=== PATIENT | female | born 1930 | race Caucasian/White ===

== ENCOUNTER 2017-06-06 16:58 | Observation (INO) | payer MEDICARE ==
[~2017-06-06] VITALS: Ht 149.9 cm; Wt 68.0 kg
--- NOTE | ~2017-06-06 | HP ---
Unit #: [id number] #: [id number] Patient: YUE LOPEZ [id number] [address] [id number] I MR#: [id number] NAME: YUE LOPEZ. ROOM: 217 Age: 86 Sex: F Admission Date: 06/06/2017 : 1930 Attending Physician: Mel Lara M.D. Primary Care Physician: Jammie Givens M.D. HISTORY AND PHYSICAL CHIEF COMPLAINT Gastroenteritis with dehydration. HISTORY This pleasant 86-year-old female with hypertension, AODM, hypothyroidism, is admitted for gastroenteritis. Patient was well until four days ago when she developed nonbloody, nausea, vomiting and then diarrhea yesterday. Denies abdominal pain, fever, sweats or chills. Did not eat anything out of the ordinary, no exposures to ill persons. She presented to the emergency department tonight and was given IV fluids and Zofran, still has drive heaves. Her abdominal examination is benign. CT scan is unremarkable. Denies history of recurrent GI symptoms. PAST MEDICAL HISTORY 1. Hypertension. 2. AODM since 2006. 3. Hypothyroidism. 4. History of cervical spine pain requiring epidural steroid injections in the past. 5. Breast cancer, status post left mastectomy about 4 1/2 years ago. 6. Hypothyroidism, status post thyroidectomy. 7. Appendectomy. 8. Cataract extraction. 9. Cholecystectomy. 10. Hysterectomy. 11. Surgery for a detached retina. ALLERGIES Sulfa. HOME MEDICATIONS Allopurinol 300 mg daily; Lasix 20 mg b.i.d.; losartan 25 mg daily; Synthroid 0.125 mg daily; metformin 500 mg b.i.d.; aspirin 81 mg daily; tamoxifen 20 mg daily. FAMILY HISTORY Diabetes mellitus, hypertension, asthma. SOCIAL HISTORY The patient lives with her grandchildren. Lifelong nonsmoker, does not drink alcohol. Unit #: [id number] #: [id number] Patient: YUE LOPEZ REVIEW OF SYSTEMS Notable for hypertension, AODM, hypothyroidism, breast cancer, nausea, vomiting, and diarrhea. Above mentioned surgeries. Other systems were reviewed and otherwise negative. PHYSICAL EXAMINATION GENERAL: Pleasant, moderately obese, 86-year-old female currently in no acute distress. VITAL SIGNS: Temperature 98.1, pulse 108, respirations 16, blood pressure 163/60, O2 saturation is 97% on room air. HEENT: Eyes - PERRLA. Extraocular movements intact. Pharynx is benign. NECK: Supple without adenopathy or thyromegaly. CHEST: Clear. CARDIAC: Normal S1 and S2 without S3, S4 or murmur. ABDOMEN: Bowel sounds are present. No hepatosplenomegaly, tenderness, or masses. EXTREMITIES: Without edema. Pedal pulses are present. No ulcers on the feet. NEUROLOGIC: Patient is awake, alert, and oriented. Cranial nerves are intact, except that she is hard of hearing. She has equal strength throughout. DIAGNOSTIC STUDIES ADMISSION LABS: Hematocrit is 41.4, white blood count is 13.5, MCV is 96, normal platelet count. SMA 12 - glucose 123, BUN 24, AST 46, ALT 52. Urinalysis negative. IMAGING STUDIES: CT scan of the abdomen and pelvis show diverticulosis, mild hepatomegaly with hepatic steatosis, typical and atypical renal cyst, which are unchanged. ASSESSMENT 1. Gastroenteritis with dehydration. 2. AODM. 3. Essential hypertension. 4. Breast cancer, status post left mastectomy. 5. Hypothyroidism. PLANS 1. IV fluids and supportive treatment. 2. Hold Lasix until diet is advanced. 3. Stool cultures. 4. Sliding scale insulin for now. 5. SCDs for DVT prophylaxis. 1. Dictated by Mel Lara M.D. AML/ts TD: 06/07/2017 05:33 JOB #: [id number] Unit #: [id number] #: [id number] Patient: YUE LOPEZ HISTORY AND PHYSICAL Page 1 of 1 X Mel Lara MD HISTORY AND PHYSICAL
--- NOTE | ~2017-06-06 | US37 ---
[facility] A Service of [facility] & [facility] RADIOLOGY TEXT RESULTS PATIENT: YUE LOPEZ LOCATION: [facility] - : 32 UNIT #: [id number] AGE: [address]: Kwan Arriaza MD SEX: F ORDER DR: [id number] [facility] [address] [place], [place] [address] [id number] I MR#: [id number] Acc #: [id number] NAME: YUE LOPEZ. : 1930 SEX: F STUDY DATE/TIME: 06/07/2017 13:10 UNIT: [facility] ROOM: [facility] STUDY DESCRIPTION: US Carotid W/Doppler Bilateral Attending Physician: Kwan Arriaza M.D. Ordering Physician: Kwan Arriaza M.D. Primary Care Physician: Jammie Givens M.D. MEDICAL IMAGING REPORT This report is preliminary unless electronic signature is present EXAM Bilateral carotid duplex HISTORY Dizziness x 4 months. FINDINGS There is patent flow seen throughout the right common carotid, internal carotid, and external carotid arteries. There is some mild homogeneous echogenic plaque seen in the mid-portion of the right common carotid artery, extending to the carotid bifurcation, where it appears a bit more heterogeneous and irregular. This plaque extends into the internal carotid and external carotid arteries. The right common carotid peak velocity is 48 cm/sec. The right internal carotid artery, which appears somewhat tortuous, has the following peak systolic/end-diastolic velocities: proximal 65/9 cm/sec, mid 72.13 cm/sec, distal 50/15 cm/sec. The right external carotid artery has peak systolic of 94 cm/sec, vertebral artery 26 cm/sec. The right ICA:CCA ratio is 1.4. There is patent flow seen throughout the left common carotid, internal carotid and external carotid arteries. At the left carotid bifurcation, there is some irregular, heterogeneous and echogenic plaque. The left common carotid artery peak velocity is 59 cm/sec. The left internal carotid artery peak systolic/end-diastolic velocities are: proximal 59/11 cm/sec, mid 63/16 cm/sec, distal 65/16 cm/sec. The left external carotid peak velocity is 48 cm/sec and vertebral artery 45 cm/sec. The left ICA:CCA ratio is 1.1. IMPRESSION 1. The right carotid artery has mild atherosclerosis, which is not hemodynamically significant by duplex criteria (less than 50%). 2. The left carotid artery has mild atherosclerosis, which is not STS. [facility] A Service of [facility] & [facility] RADIOLOGY TEXT RESULTS PATIENT: YUE LOPEZ LOCATION: [place] [address] : 32 UNIT #: [id number] AGE: [address]: Kwan Arriaza MD SEX: F ORDER DR: hemodynamically significant by duplex criteria (less than 50%). 3. Vertebral flow antegrade bilaterally. Dictated by... Josue Jolly M.D. THIS IS AN ELECTRONICALLY VERIFIED REPORT Josue Jolly M.D. at 06/12/2017 7:12 AM THELMA/j carlos TD: 06/07/2017 23:17 JOB #: [id number] MEDICAL IMAGING REPORT Page 1 of 1 COPY
--- NOTE | ~2017-06-06 | CT71 ---
[facility] A Service of [facility] RADIOLOGY TEXT RESULTS PATIENT: YUE LOPEZ LOCATION: [facility] 217- : 32 UNIT #: [id number] AGE: [address]: Kwan Arriaza MD SEX: F ORDER DR: [id number] [facility] [address] [facility] [place], [place] [address] [id number] I MR#: [id number] Acc #: [id number] NAME: YUE LOPEZ. : 1930 SEX: F STUDY DATE/TIME: 06/07/2017 14:05 UNIT: [facility] ROOM: [facility] STUDY DESCRIPTION: CT Head Wo Contrast Attending Physician: Kwan Arriaza M.D. Ordering Physician: Kwan Arriaza M.D. Primary Care Physician: Jammie Givens M.D. MEDICAL IMAGING REPORT This report is preliminary unless electronic signature is present EXAM Noncontrast CT head 06/07/2017 HISTORY Dizziness for 2 days. Hypertension. History of breast cancer. COMPARISON Noncontrast CT head 08/08/2011. TECHNIQUE This CT exam was performed with one or more of the following radiation dose reduction techniques: automatic exposure control, adjustment of mA and/or kV according to patient size, and iterative reconstruction. FINDINGS Extensive hypodensities throughout the deep white matter of the brain are consistent with the appearance of chronic microvascular disease. [place] matter-white matter junction distinction appears preserved without evidence of acute or evolving infarct. No intracranial mass lesion, mass effect or midline shift is identified. There is mild generalized parenchymal atrophy with compensatory prominence of ventricles and extraaxial spaces. Abnormal hyperdensity throughout the left globe with what appears be a scleral band in place. This is unchanged from prior. No acute calvarial abnormality. Major paranasal sinuses and mastoid air cells are clear. IMPRESSION 1. No acute intracranial findings. 2. Extensive chronic microvascular disease changes. 3. Abnormal appearance of the left globe, similar to the 2010 [facility] A Service [facility] RADIOLOGY TEXT RESULTS PATIENT: YUE LOPEZ LOCATION: [facility] 217-01 : 32 UNIT #: [id number] AGE: [address]: Kwan Arriaza MD SEX: F ORDER DR: examination. Correlate with known history and physical exam findings. Dictated by... Katie Payna M.D. THIS IS AN ELECTRONICALLY VERIFIED REPORT Katie Payan M.D. at 06/08/2017 2:03 PM KELLEY/j carlos TD: 06/07/2017 20:34 JOB #: [id number] MEDICAL IMAGING REPORT Page 1 of 1 COPY
--- NOTE | ~2017-06-06 | DS ---
Unit #: [id number] #: [id number] Patient: YUE LOPEZ [id number] [address] [place], [place] [address] [id number] I MR#: [id number] NAME: YUE LOPEZ. ROOM: 217 Age: 86 Sex: F Admission Date: 06/06/2017 : 1930 Discharge Date: 06/08/2017 Attending Physician: Kwan Arriaza M.D. Primary Care Physician: Jammie Givens M.D. DISCHARGE SUMMARY REASON FOR ADMISSION Gastroenteritis, intractable nausea and vomiting. HISTORY OF PRESENT ILLNESS/HOSPITAL COURSE The patient is a very pleasant 86-year-old female with a prior history of hypertension, diabetes, hypothyroidism, was admitted secondary to gastroenteritis. Please see H and P for complete details. She underwent CT abdomen and pelvis in the emergency room which did not show any acute process. She was admitted, placed on Med/Surg floor initially and symptom management was initiated. Her diet was gradually transitioned from clear into regular. She was placed on PPI therapy as well as IV Zofran. She was placed on appropriate IV fluids. She subsequently stated that she had been having off and on dizziness as well as difficulty with ambulation secondary to recurrent room spinning and/or lightheadedness issues. Therefore, this prompted a CT head non-contrast which did not show any acute process. Similar findings were obtained as her 2011 CT report. She also underwent an ultrasound of her bilateral carotids which revealed less than 50% atherosclerosis. Routine laboratory studies showed a hemoglobin A1c of 6.5%, B12 was slightly decreased at 348 and she was given vitamin B12 prior to discharge. Heart monitor did not show any acute arrhythmias while she was here. EKG showed normal sinus with occasional premature atrial contractions. At this point in time, the patient is clinically stable for discharge and will have VNA services follow her at time of discharge. I will be decreasing her metformin to 500 mg on a once a day basis and her Lasix I will discontinue altogether as I don't see a reason for Lasix at this particular time. FINAL DISCHARGE DIAGNOSES 1. Viral gastroenteritis, now resolving. 2. 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 3. Hypertension. 4. Type 2 diabetes. 5. Hypothyroidism. 6. Prior history of breast carcinoma. Unit #: [id number] #: [id number] Patient: YUE LOPEZ 7. Hypothyroidism. FINAL DISCHARGE MEDICATIONS 1. Tylenol 650 mg p.o. q.4 p.r.n. 2. Glucophage 500 mg p.o. daily. 3. Tamoxifen 20 mg p.o. daily. 4. Cozaar 25 mg p.o. daily. 5. Allopurinol 300 mg p.o. daily. 6. Aspirin 81 mg p.o. daily. 7. Synthroid 125 mcg p.o. daily. DISCHARGE CONDITION Stable. DISCHARGE DISPOSITION Home. Dictated by... [place] Raman/nohemi TD: 06/08/2017 13:11 JOB #: [id number] DISCHARGE SUMMARY Page 1 of 1 X Kwan Arriaza MD X DISCHARGE SUMMARY
--- NOTE | ~2017-06-06 | EKG ---
PATIENT: YUE LOPEZ UNIT #: [id number] Ventricular Rate: 83 BPM Atrial Rate: 83 BPM P-R Interval: 124 ms QRS Duration: 76 ms Q-T Interval: 398 ms QTC Calculation(Bezet): 467 ms P [place]: 45 degrees Calculated R [place]: 34 degrees Calculated T [place]: 28 degrees Diagnosis Line: Sinus rhythm with Premature atrial complexes Diagnosis Line: Nonspecific ST abnormality Diagnosis Line: Abnormal ECG Diagnosis Line: When compared with ECG of 09-AUG-2009 11:56, Diagnosis Line: Premature atrial complexes are now Present Diagnosis Line: Confirmed by AURELIO TOLEDO MD ([id number]) on 06/07/2017 Diagnosis Line: 7:23:29 PM INTERPRETING MD: PARIS ESPINOSA
--- NOTE | ~2017-06-06 | CT2 ---
[facility] A Service of [facility] & [facility] RADIOLOGY TEXT RESULTS PATIENT: YUE LOPEZ LOCATION: [facility] - : 32 UNIT #: [id number] AGE: [address]: Kwan Arriaza MD SEX: F ORDER DR: [id number] [facility] [address]. [place], [place] [address] [id number] I MR#: [id number] #: [id number] NAME: YUE LOPEZ. : 1930 SEX: F STUDY DATE/TIME: 06/06/2017 21:34 UNIT: C2 ROOM: [facility] STUDY DESCRIPTION: CT Abd and Pelv W Cont Attending Physician: Kwan Arriaza M.D. Ordering Physician: Aby Carrillo M.D. Primary Care Physician: Jammie Givens M.D. MEDICAL IMAGING REPORT This report is preliminary unless electronic signature is present EXAM CT abdomen and pelvis with contrast, 06/06/2017 HISTORY 86-year-old female in the ED complaining of 1-day history of abdomen pain, nausea and vomiting. TECHNIQUE CT examination of the abdomen and pelvis with IV contrast. GI contrast was not ordered or was not consumed by the patient. This CT exam was performed with one or more of the following radiation dose reduction techniques: automatic exposure control, adjustment of mA and/or kV according to patient size, and iterative reconstruction. FINDINGS ABDOMEN FINDINGS: [id number] sigmoid diverticulosis, but no convincing evidence of acute diverticulitis. Small bowel and colon are otherwise normal in caliber and appearance. The appendix is surgically absent by history. Cholecystectomy. No bile duct dilatation. Mild hepatomegaly and mild diffuse hepatic steatosis, unchanged since 11/26/2015. Liver, pancreas and spleen are otherwise negative. Normal caliber abdominal aorta. Three left renal cysts are present, including a mildly atypical upper pole cyst. These are unchanged in size since 05/15/2009 and should be benign. No evidence of urinary obstruction. Small benign right adrenal adenoma is also unchanged since 2008. PELVIS FINDINGS: Hysterectomy. Urinary bladder and rectum are negative. No inguinal hernia. Limited lung base images show no active disease in the lower chest. [facility]. [facility] A Service of [facility] & [facility] RADIOLOGY TEXT RESULTS PATIENT: YUE LOPEZ [facility]ATION: [id number] : 32 UNIT #: [id number] AGE: [address]: Kwan Arriaza MD SEX: F ORDER DR: IMPRESSION 1. No acute abnormality within the abdomen or pelvis. 2. Cholecystectomy, appendectomy and hysterectomy. 3. Sigmoid diverticulosis without evidence of acute diverticulitis. 4. Mild hepatomegaly and mild diffuse hepatic steatosis. 5. Typical and atypical left renal cysts without significant change since 05/15/2009. 6. Benign right adrenal adenoma, also unchanged. Dictated by... Duran Vivar M.D. THIS IS AN ELECTRONICALLY VERIFIED REPORT Duran Vivar M.D. at 06/07/2017 9:57 PM Betzy TD: 06/07/2017 09:34 JOB #: [id number] MEDICAL IMAGING REPORT Page 1 of 1 COPY
[~2017-06-06 16:58] MED LIST: ALBUTEROL17 GM INH; ALLOPURINOL300 MG PO; ASPIRIN PO; BAYER CHEWABLE81 MG PO; CARDURA PO; CIPRO PO; DUONEB 2.5-0.5 M3 ML NEB; GLUCOPHAGE XR500 MG PO; GLUCOPHAGE500 MG PO; LASIX PO; LASIX20 MG PO; LEVAQUIN PO; LEVAQUIN750 M1 PO; LEVOTHYROXINE100 MCG PO; LOPRESSOR PO; LORTAB 5/500 TA1 TA1 PO; LOSARTAN-HCTZ1 EACH PO; MEDROL DOSE PACK; NORVASC PO; PHENERGAN PO; SPIRIVA18 MCG INH; SYMBICORT INH; SYNTHROID PO; TAMOXIFEN CITRA20 MG PO; TUSSIONEX PO; ZITHROMAX PO; ZYLOPRIM PO
[2017-06-06 17:43] LABS: BASOPHIL# 0.1 X10e3 (0-0.3); BASOPHIL% 0.9 % (0-2.5); EOSINOPHIL# 0.3 X10e3 (0-0.7); EOSINOPHIL% 2.3 % (0.0-7.0); HEMATOCRIT 41.4 % (35.0-45.0); HEMOGLOBIN 13.1 gm/dL (12.0-16.0); LYMPHOCYTE# 2.6 X10e3 (1.0-3.5); LYMPHOCYTE% 19.3 % (17.0-45.0); MEAN CELL VOLUME 96.1 FL (83-96); MEAN CORPUSCULAR HEMOGLOBIN 30.5 PG (28-34); MEAN CORPUSCULAR HGB CONC 31.7 g/dL (30-36); MEAN PLATELET VOLUME 8.9 FL (6.5-11.5); MONOCYTE# 0.9 X10e3 (0-1.0); MONOCYTE% 6.8 % (3.0-12.0); NEUTROPHIL# 9.5 X10e3 (1.5-7.1); NEUTROPHIL% 70.7 % (40-75); PLATELET COUNT 315 X10e3 (140-420); RED BLOOD COUNT 4.31 X10e (3.90-5.30); WHITE BLOOD COUNT 13.5 X10e3 (4.0-10.5)
[2017-06-06 17:45] LABS: DIFF IND NO
[2017-06-06 18:07] LABS: BILIRUBIN, DIRECT 0.1 mg/dL (0.0-0.2); BILIRUBIN,TOTAL 0.1 mg/dL (0.2-2.0); CALCIUM SERUM 8.4 mg/dL (8.4-10.2); GLOM FILT RATE Estimated 51.7 mL/min (>60); POTASSIUM 3.6 mmol/L (3.5-5.1)
[2017-06-06 22:19] LABS: URINE SOURCE CLEAN CATCH
[2017-06-06 22:25] LABS: URINE APPEARANCE CLEAR; URINE BILIRUBIN NEG (NEG); URINE BLOOD NEG (NEG); URINE COLOR YELLOW; URINE GLUCOSE NEG (NEG); URINE KETONE TRACE (NEG); URINE LEUKOCYTE ESTERASE NEG (NEG); URINE NITRATE NEG (NEG); URINE PH 5.5 (5-8); URINE PROTEIN NEG (NEG); URINE SPECIFIC GRAVITY 1.064 (1.003-1.035); URINE UROBILINOGEN 0.2 MG/DL (NEG)
[2017-06-06 22:28] LABS: CULTURE INDICATED? NO
[2017-06-07] MEDS ORDERED: LASIX20 MG PO (02:06)
[2017-06-07] MEDS ORDERED: ALLOPURINOL300 MG PO (02:06)
[2017-06-07] MEDS ORDERED: COZAAR25 MG PO (02:07)
[2017-06-07] MEDS ORDERED: SYNTHROID125 PO (02:08)
[2017-06-07] MEDS ORDERED: BAYER CHEWABLE81 MG PO (02:09)
[2017-06-07] MEDS ORDERED: GLUCOPHAGE500 MG PO (02:09)
[2017-06-07] MEDS ORDERED: TAMOXIFEN CITRA20 MG PO (02:11)
[2017-06-07 07:17] LABS: BUN/CREATININE RATIO 21.11; CALCIUM SERUM 7.6 mg/dL (8.4-10.2); CREATININE SERUM 0.9 mg/dL (0.6-1.4); GLOM FILT RATE Estimated 58.8 mL/min (>60); POTASSIUM 3.5 mmol/L (3.5-5.1)
[2017-06-07 07:38] LABS: BASOPHIL# 0.1 X10e3 (0-0.3); BASOPHIL% 1.1 % (0-2.5); DIFF IND NO; EOSINOPHIL# 0.3 X10e3 (0-0.7); HEMATOCRIT 37.6 % (35.0-45.0); HEMOGLOBIN 12.3 gm/dL (12.0-16.0); LYMPHOCYTE# 2.2 X10e3 (1.0-3.5); LYMPHOCYTE% 22.2 % (17.0-45.0); MEAN CORPUSCULAR HEMOGLOBIN 31.4 PG (28-34); MEAN CORPUSCULAR HGB CONC 32.7 g/dL (30-36); MEAN PLATELET VOLUME 8.6 FL (6.5-11.5); MONOCYTE# 0.8 X10e3 (0-1.0); MONOCYTE% 7.5 % (3.0-12.0); NEUTROPHIL# 6.7 X10e3 (1.5-7.1); NEUTROPHIL% 66.2 % (40-75); PLATELET COUNT 223 X10e3 (140-420); RED BLOOD COUNT 3.91 X10e (3.90-5.30); RED CELL DISTRIBUTION WIDTH 14.2 % (11.0-15.5); WHITE BLOOD COUNT 10.1 X10e3 (4.0-10.5)
[2017-06-08 05:20] LABS: HEMATOCRIT 36.1 % (35.0-45.0); HEMOGLOBIN 12.1 gm/dL (12.0-16.0); MEAN CELL VOLUME 94.9 FL (83-96); MEAN CORPUSCULAR HEMOGLOBIN 31.8 PG (28-34); MEAN CORPUSCULAR HGB CONC 33.5 g/dL (30-36); RED BLOOD COUNT 3.81 X10e (3.90-5.30); RED CELL DISTRIBUTION WIDTH 13.9 % (11.0-15.5)
[2017-06-08 06:48] LABS: CALCIUM SERUM 7.9 mg/dL (8.4-10.2); CREATININE SERUM 0.8 mg/dL (0.6-1.4); GLOM FILT RATE Estimated 67.8 mL/min (>60); POTASSIUM 3.5 mmol/L (3.5-5.1)
== END 2017-06-08 14:54 | disposition home or self-care (01) ==
LOC: CED 16:58 → CEDOF 23:27 → CED 23:27 → CEDOF 23:30 → C2A 06-07 00:25 → CEDOF 06-07 00:25 → C2A 06-07 08:46
PROVIDERS: Emergency Medicine; Family Medicine
DX: A08.4 Viral intestinal infection, unspecified (principal); E86.0 Dehydration; R42 Dizziness and giddiness; I10 Essential (primary) hypertension; E11.9 Type 2 diabetes mellitus without complications; Z85.3 Personal history of malignant neoplasm of breast; E03.9 Hypothyroidism, unspecified; Z79.84 Long term (current) use of oral hypoglycemic drugs; Z90.12 Acquired absence of left breast and nipple
CPT/HCPCS: 36415; 70450; 74177; 80048; 80076; 81003; 82607; 82947; 83036; 83690; 84443; 85025; 85027; 93005; 93306; 93880; 96361; 96372; 96374; 97161; 97165; 99285; G0378; G8978-GP; G8979-GP; G8980-GP; G8987-GO; G8988-GO; G8989-GO; J1815; J2405; J3420; Q9967